=== PATIENT | female | born 2000 | race Caucasian/White ===

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

== ENCOUNTER 2020-11-16 14:33 | Inpatient (IN) | payer BC ==
[~2020-11-16] VITALS: Ht 162.6 cm; Wt 101.0 kg
[~2020-11-16 14:33] MED LIST changes: +ALBU90OI61 INH; +IBUP800 PO; +PRENATAL VITAM1 EAC2 PO; +Percocet 5-3251 EACH
[2020-11-16 15:09] LABS: Hematocrit 33.4 % (33.0-51.0); Hemoglobin 10.9 g/dL (11.5-16.0); Mean Corpuscular HGB 27.8 pg (26.0-34.0); Mean Corpuscular HGB Conc 32.6 g/dL (31.5-36.5); Mean Corpuscular Volume 85 fL (80-100); Mean Platelet Volume 10.9 fL (9.1-12.4); Platelet Count 167 K/mm3 (150-400); RDW Coefficient Variation 14.2 % (11.7-14.2); RDW Standard Deviation 43.9 fL (35.1-46.3); Red Blood Cell Count 3.92 M/mm3 (3.80-5.20); White Blood Cell Count 9.06 K/mm3 (4.00-11.30)
[2020-11-17 05:59] LABS: BASOPHILS ABSOLUTE AUTO 0.04 K/mm3 (0.00-0.23); BASOPHILS PERCENT AUTO 1 % (0-2); EOSINOPHILS ABSOLUTE AUTO 0.06 K/mm3 (0.00-0.68); EOSINOPHILS PERCENT AUTO 1 % (0-6); Hematocrit 33.8 % (33.0-51.0); Hemoglobin 11.3 g/dL (11.5-16.0); IMMATURE GRAN ABSOLUTE AUTO 0.09 K/mm3 (0.00-0.10); IMMATURE GRAN PERCENT AUTO 1 % (0-1); LYMPHOCYTES ABSOLUTE AUTO 1.72 K/mm3 (0.84-5.20); LYMPHOCYTES PERCENT AUTO 22 % (21-46); MONOCYTES ABSOLUTE AUTO 0.88 K/mm3 (0.16-1.47); MONOCYTES PERCENT AUTO 11 % (4-13); Mean Corpuscular HGB 28.3 pg (26.0-34.0); Mean Corpuscular HGB Conc 33.4 g/dL (31.5-36.5); Mean Corpuscular Volume 85 fL (80-100); Mean Platelet Volume 10.6 fL (9.1-12.4); NEUTROPHILS ABSOLUTE AUTO 4.96 K/mm3 (1.96-9.15); NEUTROPHILS PERCENT AUTO 64 % (41-73); Platelet Count 159 K/mm3 (150-400); RDW Coefficient Variation 14.1 % (11.7-14.2); RDW Standard Deviation 43.5 fL (35.1-46.3); White Blood Cell Count 7.75 K/mm3 (4.00-11.30)
[2020-11-17 08:28] LABS: PCO2 Cord - Arterial 55.5 mmHg (40-50); PO2 Cord - Arterial 17.5 mmHg (16-20); pH Cord - Arterial 7.29 (7.28-7.35)
[2020-11-17 08:30] LABS: PCO2 Cord - Venous 43.2 mmHg (40-50); PO2 Cord - Venous 31.8 mmHg (28-32); pH Umbilical Cord - Venous 7.37 (7.26-7.35)
--- NOTE | 2020-11-17 08:43 | NUR ---
11/17/20 0843 Ab Cartwright REPEAT C/S DELIVERY OF FEMALE AT 0814, 4375 GM 9#10 LENGTH 20.5 PLACENTA WT 990 GM, CYST COLLECTED OFF OF LT FALLOPIAN TUBE AND SENT TO PATHOLOGY. CORD SEGMENT COLLECTED AND GIVEN TO Tri العراقي RT AND CORD BLOOD COLLECTED AND GIVEN TO Rosy JUNIOR RN
--- NOTE | 2020-11-17 14:33 | NUR ---
RN/LC ROUNDED TO HELP W/ . INSTRUCT/DEMO WIDENING LATCH, CORRECT POSITIONING AND NIPPLE SHAPE AFTER FEEDS. PT HAS NB LATCHED AND IS FEEDING WELL. PT IS AN EXPERIENCED MOM, FURTHER LC OFFERED IF PT DESIRES.
[2020-11-18 06:04] LABS: Hematocrit 30.8 % (33.0-51.0); Hemoglobin 9.9 g/dL (11.5-16.0); Mean Corpuscular HGB 27.5 pg (26.0-34.0); Mean Corpuscular HGB Conc 32.1 g/dL (31.5-36.5); Mean Corpuscular Volume 86 fL (80-100); Mean Platelet Volume 10.9 fL (9.1-12.4); Platelet Count 127 K/mm3 (150-400); RDW Coefficient Variation 14.3 % (11.7-14.2); RDW Standard Deviation 44.2 fL (35.1-46.3); White Blood Cell Count 8.18 K/mm3 (4.00-11.30)
--- NOTE | 2020-11-18 18:09 | NUR ---
ASSIST MOM REPORTS THAT LAST FEEDING WENT BETTER, BABY MORE INTRESTED IN FEEDING. JOY I DEMONSTRATED SELF EXPRESSION OF CLOSTRUM AND SPOON FEEDING. MOM TO CONT TO PUT BABY TO BREAST Q 2-3 HOURS. I WILL CHECH ON MOM TOMORROW.
[2020-11-19] MEDS ORDERED: DOCU100 PO (12:04)
[2020-11-19] MEDS ORDERED: IBUP400 PO (12:05)
[2020-11-19] MEDS ORDERED: Percocet 5-3251 EACH PO (12:06)
--- NOTE | 2020-11-19 12:45 | NUR ---
DISCHARGE SUMMARY PT DC HOME TODAY WITH SPOUSE AND NB VIA IND AMBULATION TO PRIVATE VEHICLE. DISCHARGE INSTRUCTIONS, SCRIPTS, PERSONAL BELONGINGS, AND SCHEDULED FOLLOW-UP APPT PROVIDED TO PT PRIOR TO DC. PT VERBALIZED UNDERSTANDING AND DENIED ANY CONCERNS.
== END 2020-11-19 12:55 | disposition home or self-care (01) | DRG 788 ==
LOC: BC 11-17 05:36
PROVIDERS: ADMIT Obstetrics & Gynecology
PROC: 10D00Z1 Extraction of Products of Conception, Low, Open Approach (ICD-10-PCS; principal; 2020-11-17 07:30)
DX: O34.211 Maternal care for low transverse scar from previous cesarean delivery (principal); O36.63X0 Maternal care for excessive fetal growth, third trimester, not applicable or unspecified; Z3A.39 39 weeks gestation of pregnancy; Z37.0 Single live birth; Z20.822 Contact with and (suspected) exposure to COVID-19
CPT/HCPCS: 0241U; 36415; 82803; 85025; 85027; 86850; 86900; 86901; 88305; A9270; J0690; J1885; J2210; J2370; J2405; J2590; J2765; J3010; J3430; J7120

== ENCOUNTER → 2022-06-26 | Outpatient (CLI) | payer BC ==
[~2022-06-26] MED LIST changes: +DOCU100 PO; +IBUP400 PO; +Percocet 5-3251 EACH PO
[2022-06-26 10:51] LABS: BASOPHILS ABSOLUTE AUTO 0.05 K/mm3 (0.00-0.23); BASOPHILS PERCENT AUTO 1 % (0-2); EOSINOPHILS ABSOLUTE AUTO 0.08 K/mm3 (0.00-0.68); EOSINOPHILS PERCENT AUTO 1 % (0-6); Hematocrit 40.7 % (33.0-51.0); Hemoglobin 14.1 g/dL (11.5-16.0); IMMATURE GRAN ABSOLUTE AUTO 0.02 K/mm3 (0.00-0.10); IMMATURE GRAN PERCENT AUTO 0 % (0-1); LYMPHOCYTES ABSOLUTE AUTO 2.17 K/mm3 (0.84-5.20); LYMPHOCYTES PERCENT AUTO 31 % (21-46); MONOCYTES ABSOLUTE AUTO 0.52 K/mm3 (0.16-1.47); MONOCYTES PERCENT AUTO 8 % (4-13); Mean Corpuscular HGB 30.3 pg (26.0-34.0); Mean Corpuscular HGB Conc 34.6 g/dL (31.5-36.5); Mean Corpuscular Volume 88 fL (80-100); NEUTROPHILS ABSOLUTE AUTO 4.12 K/mm3 (1.96-9.15); NEUTROPHILS PERCENT AUTO 59 % (41-73); Platelet Count 195 K/mm3 (150-400); RDW Coefficient Variation 11.8 % (11.7-14.2); RDW Standard Deviation 37.7 fL (35.1-46.3); Red Blood Cell Count 4.65 M/mm3 (3.80-5.20); White Blood Cell Count 6.96 K/mm3 (4.00-11.30)
[2022-06-26 11:17] LABS: Free Thyroxine 0.93 ng/dL (0.70-1.60)
[2022-06-26 11:20] LABS: Albumin, Blood 3.5 g/dL (3.4-5.0); Bilirubin, Total 0.9 mg/dL (0.1-1.0); Bun/Creatinine Ratio 14.7 (12.0-20.0); Calcium, Blood 8.6 mg/dL (8.5-10.1); Creatinine, Blood 0.61 mg/dL (0.40-1.00); Globulin, Blood 3.5 g/dL (2.2-4.0); Potassium, Blood 3.7 mmol/L (3.5-5.5); Thyroid Stimulating Hormone 2.09 uIU/mL (0.360-4.800)
== END ==
LOC: LAB 10:41 → LAB SHORT 10:41
PROVIDERS: Nurse Practitioner Family
DX: M54.2 Cervicalgia (principal); R53.83 Other fatigue
CPT/HCPCS: 80053; 84439; 84443; 85025

== ENCOUNTER 2023-02-14 05:42 | Inpatient (IN) | payer BC ==
[~2023-02-14] VITALS: Ht 162.6 cm; Wt 102.0 kg
[2023-02-14 05:52] VITALS: BP 120/73
[2023-02-14 06:28] LABS: BASOPHILS ABSOLUTE AUTO 0.04 K/mm3 (0.00-0.23); BASOPHILS PERCENT AUTO 1 % (0-2); EOSINOPHILS ABSOLUTE AUTO 0.04 K/mm3 (0.00-0.68); EOSINOPHILS PERCENT AUTO 1 % (0-6); Hematocrit 30.9 % (33.0-51.0); IMMATURE GRAN ABSOLUTE AUTO 0.04 K/mm3 (0.00-0.10); IMMATURE GRAN PERCENT AUTO 1 % (0-1); LYMPHOCYTES ABSOLUTE AUTO 1.76 K/mm3 (0.84-5.20); LYMPHOCYTES PERCENT AUTO 23 % (21-46); MONOCYTES ABSOLUTE AUTO 0.81 K/mm3 (0.16-1.47); MONOCYTES PERCENT AUTO 11 % (4-13); Mean Corpuscular HGB 27.2 pg (26.0-34.0); Mean Corpuscular HGB Conc 32.4 g/dL (31.5-36.5); Mean Corpuscular Volume 84 fL (80-100); Mean Platelet Volume 11.3 fL (9.1-12.4); NEUTROPHILS ABSOLUTE AUTO 4.84 K/mm3 (1.96-9.15); NEUTROPHILS PERCENT AUTO 64 % (41-73); Platelet Count 120 K/mm3 (150-400); RDW Coefficient Variation 13.3 % (11.7-14.2); RDW Standard Deviation 41.1 fL (35.1-46.3); Red Blood Cell Count 3.67 M/mm3 (3.80-5.20); White Blood Cell Count 7.53 K/mm3 (4.00-11.30)
[2023-02-14 06:53] LABS: Albumin, Blood 2.1 g/dL (3.4-5.0); Albumin/Globulin Ratio 0.6 (0.8-1.8); Bilirubin, Total 0.5 mg/dL (0.1-1.0); Bun/Creatinine Ratio 8.2 (12.0-20.0); Calcium, Blood 8.3 mg/dL (8.5-10.1); Creatinine, Blood 0.61 mg/dL (0.40-1.00); Globulin, Blood 3.4 g/dL (2.2-4.0); Potassium, Blood 3.3 mmol/L (3.5-5.5); Total Protein, Blood 5.5 g/dL (6.4-8.2)
[2023-02-14 09:23] VITALS: BP 107/63
--- NOTE | 2023-02-14 13:12 | NUR ---
STRAINING ALL URINE. PINK BLOOD IN URINE BUT HASNT PASSED ANYTHING. LAYING IN BED WITH WARM KPAD.
[2023-02-14 14:24] VITALS: BP 137/65
[2023-02-14 19:23] VITALS: BP 125/66
[2023-02-15] VITALS (20 sets, daily range): BP systolic 106–133; BP diastolic 50–83
[2023-02-15 06:01] LABS: BASOPHILS ABSOLUTE AUTO 0.03 K/mm3 (0.00-0.23); BASOPHILS PERCENT AUTO 0 % (0-2); EOSINOPHILS ABSOLUTE AUTO 0.04 K/mm3 (0.00-0.68); EOSINOPHILS PERCENT AUTO 1 % (0-6); Hematocrit 28.1 % (33.0-51.0); Hemoglobin 9.4 g/dL (11.5-16.0); IMMATURE GRAN ABSOLUTE AUTO 0.05 K/mm3 (0.00-0.10); IMMATURE GRAN PERCENT AUTO 1 % (0-1); LYMPHOCYTES PERCENT AUTO 20 % (21-46); MONOCYTES PERCENT AUTO 10 % (4-13); Mean Corpuscular HGB Conc 33.5 g/dL (31.5-36.5); Mean Corpuscular Volume 84 fL (80-100); Mean Platelet Volume 11.4 fL (9.1-12.4); NEUTROPHILS ABSOLUTE AUTO 4.91 K/mm3 (1.96-9.15); NEUTROPHILS PERCENT AUTO 69 % (41-73); Platelet Count 124 K/mm3 (150-400); RDW Coefficient Variation 13.4 % (11.7-14.2); RDW Standard Deviation 40.6 fL (35.1-46.3); Red Blood Cell Count 3.36 M/mm3 (3.80-5.20); White Blood Cell Count 7.13 K/mm3 (4.00-11.30)
[2023-02-15 08:21] LABS: PCO2 Cord - Arterial 65.2 mmHg (40-50); pH Cord - Arterial 7.24 (7.28-7.35)
[2023-02-15 08:22] LABS: PO2 Cord - Venous 24.6 mmHg (28-32); pH Umbilical Cord - Venous 7.34 (7.26-7.35)
--- NOTE | 2023-02-15 08:27 | NUR ---
02/15/23 0827 Emilie Arzate [id number] DELIVERY VIABLE FEMALE INFANT, WEIGHT 4525GM 10 LBS , HEAD 14.5 INCHES, CHEST 14 INCHES, LENGTH 21 INCHES, APGARS 8/9 UMBILICAL CORD BLOOD COLLECTED GIVEN TO Josiah ORTIZ RN, UMBILCAL CORD SEGEMENT SENT WITH RT FOR CORD GASES,
[2023-02-16 03:11] VITALS: BP 117/70
[2023-02-16 05:46] LABS: BASOPHILS ABSOLUTE AUTO 0.05 K/mm3 (0.00-0.23); BASOPHILS PERCENT AUTO 1 % (0-2); EOSINOPHILS ABSOLUTE AUTO 0.05 K/mm3 (0.00-0.68); EOSINOPHILS PERCENT AUTO 1 % (0-6); Hematocrit 27.9 % (33.0-51.0); Hemoglobin 9.3 g/dL (11.5-16.0); IMMATURE GRAN ABSOLUTE AUTO 0.04 K/mm3 (0.00-0.10); IMMATURE GRAN PERCENT AUTO 1 % (0-1); LYMPHOCYTES ABSOLUTE AUTO 1.36 K/mm3 (0.84-5.20); LYMPHOCYTES PERCENT AUTO 20 % (21-46); MONOCYTES ABSOLUTE AUTO 0.71 K/mm3 (0.16-1.47); MONOCYTES PERCENT AUTO 10 % (4-13); Mean Corpuscular HGB 27.8 pg (26.0-34.0); Mean Corpuscular HGB Conc 33.3 g/dL (31.5-36.5); Mean Corpuscular Volume 84 fL (80-100); Mean Platelet Volume 11.1 fL (9.1-12.4); NEUTROPHILS ABSOLUTE AUTO 4.75 K/mm3 (1.96-9.15); NEUTROPHILS PERCENT AUTO 68 % (41-73); Platelet Count 120 K/mm3 (150-400); RDW Coefficient Variation 13.7 % (11.7-14.2); RDW Standard Deviation 41.2 fL (35.1-46.3); Red Blood Cell Count 3.34 M/mm3 (3.80-5.20); White Blood Cell Count 6.96 K/mm3 (4.00-11.30)
[2023-02-16 07:17] VITALS: BP 109/68
[2023-02-16 11:52] VITALS: BP 122/62
[2023-02-16 15:42] VITALS: BP 117/68
--- NOTE | 2023-02-16 19:47 | NUR ---
Pt was in restroom. no needs at this time.
[2023-02-16 20:24] VITALS: BP 119/70
[2023-02-17 00:16] VITALS: BP 111/69
--- NOTE | 2023-02-17 04:17 | NUR ---
Pt sleepily stated she had no needs at this time. Baby in crib.
[2023-02-17 05:25] VITALS: BP 113/63
[2023-02-17] MEDS ORDERED: Percocet 5-3251 EACH PO (06:08)
[2023-02-17] MEDS ORDERED: IBUP800 PO (06:09)
== END 2023-02-17 11:20 | disposition home or self-care (01) | DRG 784 ==
LOC: OBS 05:42 → BC 05:43 → OBS 10:28 → BC 10:30
PROVIDERS: Obstetrics & Gynecology; ADMIT Advanced Practice Midwife
PROC: 4A033R1 Measurement of Arterial Saturation, Peripheral, Percutaneous Approach (ICD-10-PCS; 2023-02-15)
PROC: 10D00Z1 Extraction of Products of Conception, Low, Open Approach (ICD-10-PCS; principal; 2023-02-15 07:30)
PROC: 0UB70ZZ Excision of Bilateral Fallopian Tubes, Open Approach (ICD-10-PCS; 2023-02-15 07:30)
DX: O34.211 Maternal care for low transverse scar from previous cesarean delivery (principal); O99.12 Other diseases of the blood and blood-forming organs and certain disorders involving the immune mechanism complicating childbirth; O99.52 Diseases of the respiratory system complicating childbirth; O99.344 Other mental disorders complicating childbirth; Z37.0 Single live birth; O90.81 Anemia of the puerperium; D64.9 Anemia, unspecified; O99.892 Other specified diseases and conditions complicating childbirth; F32.A Depression, unspecified; F41.9 Anxiety disorder, unspecified; O36.63X0 Maternal care for excessive fetal growth, third trimester, not applicable or unspecified; O69.1XX0 Labor and delivery complicated by cord around neck, with compression, not applicable or unspecified; J45.909 Unspecified asthma, uncomplicated; N20.0 Calculus of kidney; D69.6 Thrombocytopenia, unspecified; Z98.890 Other specified postprocedural states; Z30.2 Encounter for sterilization; Z79.51 Long term (current) use of inhaled steroids; Z3A.39 39 weeks gestation of pregnancy; Z79.899 Other long term (current) drug therapy
CPT/HCPCS: 36415; 76770; 80053; 81003; 82803; 85025; 86850; 86900; 86901; 88302; A9270; J0690; J1885; J2270; J2370; J2405; J2590; J2704; J2765; J3010; J7120

== ENCOUNTER → 2025-04-27 | Outpatient (CLI) | payer BC | END | disposition home or self-care (01) | LOC: LAB 17:14 → LAB SHORT 17:14 | PROVIDERS: Family Medicine | DX: Z30.430 Encounter for insertion of intrauterine contraceptive device (principal) | CPT/HCPCS: G0145 ==